=== PATIENT | male | born 1985 | race American Indian/Alaskan Native ===

== ENCOUNTER 2018-01-17 09:32 | Emergency (ER) | payer OTHER, BC ==
[2018-01-17 09:42] VITALS: BP 109/68
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
--- NOTE | 2018-01-17 13:34 | XRay Report ---
AP AND LATERAL CERVICAL SPINE: History: Neck pain. The vertebral bodies are well mineralized and normal in alignment and vertebral height. Minimal degenerative disc disease is noted at C4-5 and C5-6. The visualized portions of the posterior elements are normal. IMPRESSION: Early degenerative disc disease at C4-5 and C5-6. No acute process.
[2018-01-17] MEDS ORDERED: TORADOL IM ONE (13:56)
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
== END 2018-01-17 14:39 | disposition home or self-care (01) ==
LOC: ED 09:32
DX: S16.1XXA Strain of muscle, fascia and tendon at neck level, initial encounter (principal); M94.0 Chondrocostal junction syndrome [Tietze]; M79.1 Myalgia; V89.2XXA Person injured in unspecified motor-vehicle accident, traffic, initial encounter; W22.10XA Striking against or struck by unspecified automobile airbag, initial encounter; Y93.89 Activity, other specified; Y92.89 Other specified places as the place of occurrence of the external cause; Y99.8 Other external cause status
CPT/HCPCS: 71250; 72040; 96372; 99284; J1885